=== PATIENT | female | born 1955 | race Caucasian/White ===

== ENCOUNTER 2022-05-01 20:31 | Inpatient (IN) | payer MEDICARE, OTHER ==
[2022-05-01 22:30] VITALS: BMI 32.3
[2022-05-01] MEDS ORDERED: Sodium Chloride 0.9% 1,000 ML IV SCH (23:45)
[2022-05-01] MEDS ORDERED: Ondansetron ODT 4 MG TAB PO PRN (23:46)
[2022-05-01] MEDS ORDERED: Ondansetron PF 4 MG/2 ML Vial IVP PRN (23:46)
[2022-05-01] MEDS: Morphine 4 MG/ML VIAL SLOW IVP PRN (23:59)
[2022-05-02] MEDS ORDERED: Pantoprazole 40 MG VIAL IVP SCH ×2 (02:01→09:00)
[2022-05-02 02:18] LABS: #Eosinphils 0.1 thou/uL (0.0-0.7); #Monocytes 1.3 thou/uL (0.11-0.59); #Neutrophils 10.2 thou/uL (1.40-6.50); %Basophils 0.3 % (0.0-1.0); %Eosinophils 0.7 % (0.0-10.0); %Lymphocytes 14.5 % (21.0-51.0); %Monocytes 9.5 % (0.0-10.0); Hemoglobin 12.8 g/dL (12.0-16.0); Mean Corpuscular Hemoglobin 30.7 pg (27.0-31.0); Mean Corpuscular Volume 92.8 fl (78.0-98.0); Mean Platelet Volume 7.2 fL (7.4-10.4); Platelet Count 342 10x3/uL (130-400); RBC Distribution Width 12.2 % (11.5-14.5); Red Blood Cell (RBC) Count 4.16 mill/uL (4.20-5.40); White Blood Cell (WBC) Count 13.7 10x3/uL (4.8-10.8)
[2022-05-02 03:50] LABS: Lactic Acid 0.5 mmol/L (0.5-2.2)
[2022-05-02 03:54] LABS: Anion Gap 20 mmol/L (10-20); BUN (Urea Nitrogen) 31 mg/dL (9.8-20.1); Calc. Creatinine Clearance 54 mL/min (70-130); Calcium 8.7 mg/dL (7.8-10.44); Carbon Dioxide 26 mmol/L (23-31); Chloride 98 mmol/L (98-107); Estimated GFR 54; Glucose 87 mg/dL (80-115); Potassium 3.1 mmol/L (3.5-5.1); Sodium 141 mmol/L (136-145)
[2022-05-02] MEDS ORDERED: Non-Formulary Item 1 EACH (Loratadine [Claritin] 10 MG Capsule) PO PRN (08:05)
[2022-05-02] MEDS ORDERED: Loratadine 10 MG TAB PO PRN (08:08)
[2022-05-02] MEDS: Pantoprazole 40 MG VIAL IVP SCH ×2 (09:29→20:42)
[2022-05-02 09:57] LABS: Anion Gap 16 mmol/L (10-20); BUN (Urea Nitrogen) 31 mg/dL (9.8-20.1); Calc. Creatinine Clearance 53 mL/min (70-130); Calcium 8.2 mg/dL (7.8-10.44); Carbon Dioxide 30 mmol/L (23-31); Chloride 101 mmol/L (98-107); Estimated GFR 54; Glucose 82 mg/dL (80-115); Magnesium 1.8 mg/dL (1.6-2.6); Potassium 3.3 mmol/L (3.5-5.1); Sodium 144 mmol/L (136-145)
[2022-05-02 10:17] LABS: CKMB 1.5 ng/mL (0-6.6)
[2022-05-02] MEDS: D5 1/2 NS w/20 mEq KCL 1,000 ML IV SCH ×2 (11:40→23:08)
[2022-05-02] MEDS ORDERED: Electrolyte Replacement Protocol FS SCH (13:30)
[2022-05-02] MEDS ORDERED: Potassium Chloride 20 MEQ TAB PO SCH (15:00)
[2022-05-02] MEDS ORDERED: Magnesium 2 GM/50 ML(in water) 2 GM in Premix Bag 1 BAG IVPB SCH (15:00)
[2022-05-02 15:50] LABS: Creatinine, Urine 133.33 mg/dL (47-110); Microalbumin Urine 14.3 mg/dL (0.5-50.0); Microalbumin/Creat Ratio 107.3 mg/g (Less than 30)
[2022-05-03 06:53] LABS: #Eosinphils 0.3 thou/uL (0.0-0.7); #Monocytes 1.2 thou/uL (0.11-0.59); #Neutrophils 7.4 thou/uL (1.40-6.50); %Basophils 0.4 % (0.0-1.0); %Lymphocytes 18.6 % (21.0-51.0); %Monocytes 10.8 % (0.0-10.0); %Neutrophils 67.2 % (42.0-75.0); Hemoglobin 12.3 g/dL (12.0-16.0); Mean Corpuscular HGB CONC 33.8 g/dL (32.0-36.0); Mean Corpuscular Hemoglobin 31.8 pg (27.0-31.0); Mean Corpuscular Volume 94.2 fl (78.0-98.0); Mean Platelet Volume 7.5 fL (7.4-10.4); Platelet Count 343 10x3/uL (130-400); RBC Distribution Width 12.1 % (11.5-14.5); Red Blood Cell (RBC) Count 3.86 mill/uL (4.20-5.40)
[2022-05-03 07:14] LABS: Anion Gap 15 mmol/L (10-20); BUN (Urea Nitrogen) 14 mg/dL (9.8-20.1); Calc. Creatinine Clearance 68 mL/min (70-130); Calcium 8.6 mg/dL (7.8-10.44); Carbon Dioxide 23 mmol/L (23-31); Chloride 101 mmol/L (98-107); Estimated GFR 72; Glucose 115 mg/dL (80-115); Magnesium 1.9 mg/dL (1.6-2.6); Potassium 3.5 mmol/L (3.5-5.1); Sodium 135 mmol/L (136-145)
[2022-05-03] MEDS ORDERED: Ketamine 50 MG/ML (10ML VIAL) ONE (07:45)
[2022-05-03] MEDS ORDERED: Lidocaine 1% PF 5 ML VIAL ONE (07:51)
[2022-05-03] MEDS ORDERED: PROPOFOL 200 MG/20 ML VIAL ONE (07:51)
[2022-05-03] MEDS ORDERED: Potassium Chloride 20 MEQ TAB PO SCH (08:30)
[2022-05-03] MEDS ORDERED: Magnesium 2 GM/50 ML(in water) 2 GM in Premix Bag 1 BAG IVPB SCH (09:00)
[2022-05-03] MEDS: Pantoprazole 40 MG VIAL IVP SCH ×2 (09:16→20:39)
[2022-05-03] MEDS: D5 1/2 NS w/20 mEq KCL 1,000 ML IV SCH (09:16)
[2022-05-03] MEDS ORDERED: D5 1/2 NS w/20 mEq KCL 1,000 ML IV SCH (10:06)
[2022-05-03] MEDS: Simethicone Chewable 80 MG TAB PO PRN ×3 (10:24→23:38)
[2022-05-03 13:55] LABS: ANA Symphony (Qualitative) Negative (Negative); ANA Symphony (Quantitative) 0.6 Ratio (< 0.7 Negative); dsDNA IgG Antibody 1.5 IU/mL (<10 Negative)
[2022-05-03] MEDS: Morphine 4 MG/ML VIAL SLOW IVP PRN (19:50)
[2022-05-04] MEDS: Acetaminophen 325 MG TAB PO PRN ×3 (03:52→20:39)
[2022-05-04 05:50] LABS: #Eosinphils 0.2 thou/uL (0.0-0.7); #Lymphocytes 1.8 thou/uL (1.20-3.40); #Monocytes 1.3 thou/uL (0.11-0.59); #Neutrophils 5.6 thou/uL (1.40-6.50); %Basophils 0.3 % (0.0-1.0); %Eosinophils 2.5 % (0.0-10.0); %Lymphocytes 20.4 % (21.0-51.0); %Monocytes 14.4 % (0.0-10.0); %Neutrophils 62.3 % (42.0-75.0); Hemoglobin 11.9 g/dL (12.0-16.0); Mean Corpuscular HGB CONC 33.9 g/dL (32.0-36.0); Mean Corpuscular Hemoglobin 31.9 pg (27.0-31.0); Mean Corpuscular Volume 94.2 fl (78.0-98.0); Mean Platelet Volume 7.1 fL (7.4-10.4); Platelet Count 288 10x3/uL (130-400); RBC Distribution Width 12.2 % (11.5-14.5); Red Blood Cell (RBC) Count 3.73 mill/uL (4.20-5.40)
[2022-05-04 06:08] LABS: Anion Gap 13 mmol/L (10-20); BUN (Urea Nitrogen) 9 mg/dL (9.8-20.1); Calc. Creatinine Clearance 71 mL/min (70-130); Calcium 8.5 mg/dL (7.8-10.44); Carbon Dioxide 20 mmol/L (23-31); Chloride 106 mmol/L (98-107); Estimated GFR 76; Glucose 112 mg/dL (80-115); Potassium 3.7 mmol/L (3.5-5.1); Sodium 135 mmol/L (136-145)
[2022-05-04] MEDS: Pantoprazole 40 MG VIAL IVP SCH ×2 (09:10→20:40)
[2022-05-04] MEDS: Simethicone Chewable 80 MG TAB PO PRN ×2 (09:10→20:39)
[2022-05-04] MEDS: Calcium Carbonate 500 MG ChewTAB PO PRN ×2 (09:10→20:39)
[2022-05-04 09:36] LABS: Creatinine, Urine 38.05 mg/dL (47-110); Protein, Urine Random Quant Less than 10 mg/dL (1-14)
[2022-05-04] MEDS: hydrALAZINE 25 MG TAB PO PRN (09:59)
[2022-05-05] MEDS: Pantoprazole 40 MG VIAL IVP SCH ×2 (09:04→19:40)
[2022-05-05] MEDS: Simethicone Chewable 80 MG TAB PO PRN ×3 (09:10→19:39)
[2022-05-05] MEDS: Calcium Carbonate 500 MG ChewTAB PO PRN ×2 (13:53→19:39)
[2022-05-05] MEDS: hydrALAZINE 25 MG TAB PO PRN (14:24)
[2022-05-05] MEDS ORDERED: diphenhydrAMINE 25 MG CAP PO PRN (15:51)
[2022-05-05] MEDS ORDERED: HYDROcodone/Acetaminophen 5/325 mg Tablet PO SCH (16:00)
[2022-05-05] MEDS ORDERED: ALPRAZolam 0.25 MG TAB PO SCH (17:15)
[2022-05-05] MEDS: Triple Antibiotic Oint 1 GM Packet TOP PRN (17:18)
[2022-05-05] MEDS: Sucralfate 1 GM TAB PO PRN (19:39)
[2022-05-05] MEDS: HYDROcodone/Acetaminophen 5/325 mg Tablet PO PRN (19:40)
[2022-05-06] MEDS: Labetalol HCl 100 MG/20 ML VIAL SLOW IVP PRN ×2 (04:04→23:17)
[2022-05-06 05:58] LABS: Anion Gap 15 mmol/L (10-20); BUN (Urea Nitrogen) 10 mg/dL (9.8-20.1); Calc. Creatinine Clearance 63 mL/min (70-130); Calcium 9.2 mg/dL (7.8-10.44); Carbon Dioxide 20 mmol/L (23-31); Chloride 106 mmol/L (98-107); Estimated GFR 65; Glucose 103 mg/dL (80-115); Potassium 3.8 mmol/L (3.5-5.1); Sodium 137 mmol/L (136-145)
[2022-05-06 06:33] LABS: Mean Corpuscular HGB CONC 33.7 g/dL (32.0-36.0); Mean Corpuscular Hemoglobin 31.2 pg (27.0-31.0); Mean Corpuscular Volume 92.5 fl (78.0-98.0); Mean Platelet Volume 7.4 fL (7.4-10.4); Platelet Count 328 10x3/uL (130-400); RBC Distribution Width 12.5 % (11.5-14.5); Red Blood Cell (RBC) Count 3.84 mill/uL (4.20-5.40); White Blood Cell (WBC) Count 8.1 10x3/uL (4.8-10.8)
[2022-05-06 06:34] LABS: Band 2 % (5-11); Eosinophils 1 % (0-10); Lymphocytes 24 % (21-51); MDiff Complete? YES; Monocytes 15 % (0-10); Neutrophil 58 % (42-75); Platelet Morphology Comment Appears Adequate; RBC Morphology Normal
[2022-05-06] MEDS: HYDROcodone/Acetaminophen 5/325 mg Tablet PO PRN ×2 (08:47→18:32)
[2022-05-06] MEDS: Pantoprazole 40 MG VIAL IVP SCH ×2 (08:49→20:36)
[2022-05-06] MEDS ORDERED: Amlodipine 10 MG TAB PO SCH ×2 (11:55→12:30)
[2022-05-06] MEDS: Sucralfate 1 GM TAB PO PRN (20:36)
[2022-05-06] MEDS: Calcium Carbonate 500 MG ChewTAB PO PRN (20:36)
[2022-05-06] MEDS: Simethicone Chewable 80 MG TAB PO PRN (20:36)
[2022-05-06] MEDS: Triple Antibiotic Oint 1 GM Packet TOP PRN (20:43)
[2022-05-07] MEDS: Labetalol HCl 100 MG/20 ML VIAL SLOW IVP PRN ×2 (03:58→20:50)
[2022-05-07] MEDS: Amlodipine 10 MG TAB PO SCH (08:52)
[2022-05-07] MEDS: Pantoprazole 40 MG VIAL IVP SCH ×2 (08:53→20:55)
[2022-05-07] MEDS: Polyethylene Glycol 3350 17 GM Packet PO PRN (18:16)
[2022-05-08] MEDS: Amlodipine 10 MG TAB PO SCH (08:48)
[2022-05-08] MEDS: Pantoprazole 40 MG VIAL IVP SCH ×2 (08:48→21:51)
[2022-05-08] MEDS: HYDROcodone/Acetaminophen 5/325 mg Tablet PO PRN (16:08)
[2022-05-08] MEDS: Polyethylene Glycol 3350 17 GM Packet PO PRN (16:08)
[2022-05-09] MEDS: Labetalol HCl 100 MG/20 ML VIAL SLOW IVP PRN (00:24)
[2022-05-09] MEDS: Pantoprazole 40 MG VIAL IVP SCH (08:35)
[2022-05-09] MEDS: Amlodipine 10 MG TAB PO SCH (08:35)
[2022-05-09 09:20] VITALS: BP 180/82; TEMP 97.7
[2022-05-09] MEDS: Acetaminophen 325 MG TAB PO PRN (11:21)
== END 2022-05-09 15:57 | disposition home or self-care (01) | DRG 841 ==
LOC: MSONC 20:31 → OBSVTOIN 05-02 16:12
PROVIDERS: ADMIT Student in an Organized Health Care Education/Training Program; ATTEND Hospitalist
PROC: 0DB68ZX Excision of Stomach, Via Natural or Artificial Opening Endoscopic, Diagnostic (ICD-10-PCS; principal; 2022-05-03)
DX: C83.33 Diffuse large B-cell lymphoma, intra-abdominal lymph nodes (principal); N17.9 Acute kidney failure, unspecified; K25.9 Gastric ulcer, unspecified as acute or chronic, without hemorrhage or perforation; D72.829 Elevated white blood cell count, unspecified; E86.0 Dehydration; F19.10 Other psychoactive substance abuse, uncomplicated; E87.6 Hypokalemia; I70.8 Atherosclerosis of other arteries; F12.129 Cannabis abuse with intoxication, unspecified; K80.20 Calculus of gallbladder without cholecystitis without obstruction; N18.30 Chronic kidney disease, stage 3 unspecified; E83.42 Hypomagnesemia; Z79.899 Other long term (current) drug therapy
CPT/HCPCS: 36415; 80048; 82043; 82553; 82570; 83605; 83735; 84156; 84484; 85025; 86038; 86225; 88305; 88341; 88342; 88360; 88374; 96374; 96375; 96376; C9113; G0378; J2270; J2704; J3475; J3480; J7050